=== PATIENT | female | born 1955 | race American Indian/Alaskan Native ===

== ENCOUNTER 2022-04-01 07:39 | Day surgery (SDC) | payer OTHER ==
[~2022-04-01 07:39] MED LIST: SODIUM CHLORIDE 0.9% 1000 ML 1,000 ML IV SCH
[2022-04-01] MEDS ORDERED: WATER FOR IRRIG STERILE 1,000 ML BOTTLE ONE (08:31)
[2022-04-01] MEDS ORDERED: WATER FOR IRRIG STERILE 250 ML BOTTLE IR ONE (08:31)
--- NOTE | 2022-04-01 08:42 | Anesthesia Consultation ---
Anesthesia Consult and Med Hx Date of service: 04/01/22 - Airway Anesthetic Teeth Evaluation: Good ROM Head & Neck: Adequate Mental/Hyoid Distance: Adequate Mallampati Class: Class II Intubation Access Assessment: Probably Good - Pre-Operative Health Status ASA Pre-Surgery Classification: ASA2 Proposed Anesthetic Plan: MAC - Pulmonary Hx Smoking: Yes (quit >30yrs ago) Hx Respiratory Symptoms: No - Cardiovascular System Hx Hypertension: Yes (took antihypertensives this morning) Hx Heart Attack/AMI: No Hx Percutaneous Transluminal Coronary Angioplasty (PTCA): No - Central Nervous System CVA: No - Endocrine Hx Renal Disease: No Hx Liver Disease: No Hx Insulin Dependent Diabetes: No Hx Non-Insulin Dependent Diabetes: No Hx Thyroid Disease: No - Additional Comments Anesthesia Medical History Comments: No hx anesthetic complications. Hx DVT 10/2021 on eliquis (last dose 03/28/22).
--- NOTE | 2022-04-01 08:42 | Anesthesia Day of Surgery ---
Anesthesia Day of Surgery - Day of Surgery Patient Examined: Yes Patient H&P Reviewed: Yes Patient is NPO: Yes
[2022-04-01] MEDS ORDERED: propofoL 200 MG/20 ML VIAL IV ONE (08:54)
--- NOTE | 2022-04-01 09:32 | History and Physical Report ---
History of Present Illness Date of examination: 04/01/22 Date of admission: 04/01/2022 Chief complaint: Dysphagia History of present illness: Patient is a 66-year-old female who presents history of gastroesophageal reflux symptoms recurrent indigestion heartburn epigastric and chest pain. Patient also has recent history of recurrent dysphagia to solids. Patient now presents for further evaluation with upper endoscopy. Lately, patient has had an exacerbation of her symptoms. Past History Past Medical History: arthritis, GERD, hypertension Social history: . denies: smoking, alcohol abuse, IV drug use Family history: no significant family history Medications and Allergies Allergies Allergy/AdvReac Type Severity Reaction Status Date / Time No Known Allergies Allergy Unverified 03/30/22 13:40 Active Meds: Active Medications Sodium Chloride (Nacl 0.9% 1000 Ml) 1,000 mls @ 50 mls/hr IV DIRECT LACIE Review of Systems Constitutional: no weight loss, no weight gain, no fever, no chills, no sweats, no anorexia, no fatigue, no weakness, no malaise, no lethargy, no poor appetite, no daytime sleepiness, no chronic pain Ears, nose, mouth and throat: dysphagia, sore throat, no ear pain, no ear discharge, no tinnitis, no decreased hearing, no nose pain, no nasal congestion, no nasal discharge, no sinus pressure, no bleeding gums, no mouth pain, no hoarseness, no swelling in mouth, no swelling in throat, no odynophagia Breasts: deferred Cardiovascular: no chest pain, no shortness of breath, no paroxysmal nocturnal dyspnea, no decreased exercise tolerance Respiratory: no cough, no shortness of breath, no dyspnea on exertion Gastrointestinal: nausea, heartburn, indigestion, dyspepsia/bloating, no abdominal pain, no vomiting, no diarrhea, no constipation, no change in bowel habits, no hematemesis, no coffee ground emesis, no BRBPR, no melena, no hematochezia, no loss of appetite, no early satiety, no excessive gas, no jaundice, no early satiety, no lactose intolerance Genitourinary Female: no dyspareunia, no pelvic pain, no urgency, no incomplete emptying Menstruation: ammenorrhea Rectal: no pain, no bleeding Musculoskeletal: no neck stiffness, no neck pain, no shooting arm pain, no low back pain, no leg numbness/tingling, no morning stiffness, no muscle cramps Integumentary: no pruritis, no redness, no wounds Neurological: no head injury, no paralysis, no weakness, no numbness, no seizures, no syncope, no tremors, no headaches, no change in speech, no hearing difficulties Psychiatric: no anxiety, no memory loss, no change in sleep habits Endocrine: no cold intolerance, no polyphagia, no excessive thirst, no polydipsia, no polyuria, no nocturia, no deepening of the voice, no thyroid mass, no palpatations, no high blood sugars, no low blood sugars Allergic/Immunologic: no urticaria, no allergic rhinitis, no wheezing, no persistent infections, no anaphylaxis, no angioedema, no gluten intolerance Exam - Constitutional Vitals: Temp Pulse Resp BP Pulse Ox 98.1 F 54 L 16 119/65 04/01/22 08:11 04/01/22 08:11 04/01/22 08:11 04/01/22 08:11 General appearance: Present: no acute distress, well-nourished - EENT Eyes: Present: PERRL ENT: hearing intact, clear oral mucosa - Neck Neck: Present: supple, normal ROM - Respiratory Respiratory effort: normal Respiratory: bilateral: CTA - Cardiovascular Heart Sounds: Present: S1 & S2. Absent: rub, click - Extremities Extremities: pulses symmetrical, No edema Peripheral Pulses: within normal limits - Abdominal General gastrointestinal: Present: soft, non-tender, non-distended, normal bowel sounds Female genitourinary: Present: normal - Integumentary Integumentary: Present: clear, warm, dry - Musculoskeletal Musculoskeletal: gait normal, strength equal bilaterally - Psychiatric Psychiatric: appropriate mood/affect, intact judgment & insight - Neurologic Neurologic: CNII-XII intact, moves all extremities Assessment and Plan Dysphagia. Plan is to proceed with upper endoscopy with esophageal dilation. Additional recommendations were made and follow-up.
--- NOTE | 2022-04-01 09:50 | Operative Report ---
Operative Report Operative Report: Procedure esophagogastroduodenoscopy with wire-guided savory dilation of esophagus . Biopsies of the gastric antrum. Attending physician: Mehran Harris MD Police Records Clerk: Mehran Harris MD Indication: Patient is a 66-year-old female who presented with a history of progressive dysphagia. She has underlying history of gastroesophageal reflux disease with recurrent recurrent indigestion and heartburn. Lately, patient has had interval worsening of symptoms despite medical treatment. Also lately she has been having dysphagia to solids. An upper endoscopy is done to evaluate patient so that treatment may be directed based on findings. Consent: Informed consent was obtained the patient was advised regarding the nature of this procedure its indications potential benefits and complications including but not limited to bleeding perforation adverse reaction to medication infection as well as other cardiopulmonary complications. An informed written and verbal consent was then obtained after the opportunity was provided for questions and answers. Monitoring: Patient was monitored continuously with pulse oximetry electrocardiographic recordings as read by direct visualization. Patient's vital signs remained stable throughout this procedure with no untoward events. Preoperative assessment: Patient was assessed prior to this procedure for capacity to tolerate monitored anesthesia care. ASA classification is 3 Mallampati class is 2 mental distance is 3. Instrument: GIF every 90 Olympus video endoscope. Description of procedure: Patient was placed in a left lateral decubitus vision at achieving sedation an upper endoscope was introduced into the esophagus under direct visualization. It was then advanced beyond esophagus to the stomach and then to the second portion of the duodenum. It was withdrawn with careful inspection of all mucosal surfaces. While the endoscope was in the stomach, a savory guidewire was then introduced and esophageal dilation was accomplished with a 45 Czech savory dilator. After completing the examination the endoscope was removed from the patient. Biopsies of the gastric antrum were obtained for histopathology. Patient tolerated this procedure well with no untoward events. Findings: Esophagus was mildly tortuous. A savory guidewire was passed through the esophagus. No gross stricturing was seen in the esophagus however dilation was performed based on patient's symptoms. The Z-line was irregular at 40 cm. There was erythema and linear erosions seen in the gastric antrum. Biopsies of the antrum were obtained for histopathology. The pylorus was normal. The duodenum was normal to the second portion. Impression: Moderately tortuous esophagus status post wire-guided savory dilation. Irregular Z-line Gastric antral erythema with erosions status post biopsies of gastric antrum. Plan: Continue proton pump inhibitors Maintain antireflux measures Follow pathology report and direct additional treatment based on the pathology report Patient scheduled for outpatient follow-up additional steps to be taking close follow-up.
--- NOTE | 2022-04-01 11:20 | Post Anesthesia Evaluation ---
- Post Anesthesia Evaluation Patient Participated: Yes Airway Patent: Yes Stable Respiratory Function: Yes Nausea/Vomiting: No Temp > 96.8F: Yes Pain Manageable: Yes Adequeate Hydration: Yes Anesthesia Complications: No
[2022-04-01 12:11] VITALS: BP 126/75
== END 2022-04-01 09:40 | disposition home or self-care (01) ==
LOC: GIO 07:39
PROVIDERS: ATTEND Internal Medicine Gastroenterology
DX: R13.10 Dysphagia, unspecified (principal); K22.2 Esophageal obstruction; E78.00 Pure hypercholesterolemia, unspecified; I10 Essential (primary) hypertension; K30 Functional dyspepsia; K21.9 Gastro-esophageal reflux disease without esophagitis; K59.00 Constipation, unspecified; Z87.891 Personal history of nicotine dependence; Z79.899 Other long term (current) drug therapy
CPT/HCPCS: 43239; 43248; 88305; J2704; J7030